=== PATIENT | female | born 1995 | race Caucasian/White ===

== ENCOUNTER 2017-09-30 01:39 | Emergency (ER) | END 2017-09-30 05:52 | disposition home or self-care (01) ==

== ENCOUNTER 2017-10-05 23:03 | Emergency (ER) | END 2017-10-06 00:52 | disposition home or self-care (01) ==

== ENCOUNTER 2017-11-02 21:39 | Emergency (ER) | END 2017-11-03 01:31 | disposition left against medical advice (07) ==

== ENCOUNTER 2018-05-08 13:25 | Emergency (ER) | payer BC ==
[~2018-05-08] VITALS: Wt 141.0 kg
[~2018-05-08 13:25] MED LIST: ALBU8.5H8 INH; NAPH15DR69 LEFT EYE
[2018-05-08 13:27] VITALS: BP 145/85; PULSE 73; RESP 20
[2018-05-08] MEDS ORDERED: TETRACAINE 0.5% 4 ML OPH LEFT EYE SCH (14:00)
[2018-05-08] MEDS ORDERED: SULF15DR19 LEFT EYE (15:13)
--- NOTE | 2018-05-08 15:23 | ERD ---
ER Documentation Chief Complaint Chief Complaint l. eye pain and swelling x2 days, denies trauma HPI 22-year-old female patient with a past medical history of anemia presents the ED complaining of left eye pain and yellow eye crusts that started 2 days ago. States that she wears glasses but denies wearing contacts. Denies any fever, chills, eye injuries, nausea, vomiting, diplopia, vision loss, red eyes. She reports that she did notice these yellow eye crusting upon waking up, and has sometimes difficulty opening up her eyes. ROS All systems reviewed and are negative except as per history of present illness. Medications Home Meds Active Scripts Sulfacetamide Sodium* (Bleph-10*) 10%-15 Ml Opht Drops, 1 DROP LEFT EYE Q2H, #1 EA Prov:CARLY HUI PA-C 05/08/18 Naphazoline-Pheniramine* (Visine-A*) 15 Ml Drops, 2 DROP LEFT EYE Q4H PRN for RED EYES, #1 BOTTLE Prov:DEBRA OLMOS NP 10/06/17 Albuterol Sulfate* (Proair HFA*) 8.5 Gm Hfa.aer.ad, 2 PUFF INH Q4H PRN for WHEEZ ING AND SOB, #1 INHALER Prov:DEBRA OLMOS NP 09/30/17 Allergies Allergies: Coded Allergies: Penicillins (Verified Allergy, Intermediate, UNKNOWN - DX A CHILD, 10/05/17) PMhx/Soc History of Surgery: No Anesthesia Reaction: No Hx Neurological Disorder: No Hx Respiratory Disorders: No Hx Cardiac Disorders: No Hx Psychiatric Problems: No Hx Miscellaneous Medical Probl: No Hx Alcohol Use: No Hx Substance Use: No Hx Tobacco Use: No FmHx Family History: No diabetes, No coronary disease Physical Exam Vitals Vital Signs Date Temp Pulse Resp B/P (MAP) Pulse Ox O2 O2 Flow FiO2 Time Delivery Rate 05/08/18 97.5 73 20 145/85 100 13:27 (105) Physical Exam Const: Vfu-erc-zjqaiaysc, well-nourished. In no acute distress. Head: Atraumatic, normocephalic Eyes: Normal Conjunctiva without injection. No purulent discharge. PERRLA. EOMI ENT: Normal external ear. Ear canal without erythema. Tympanic membrane pearly olivas without effusion or bulging. Nasal canal clear with normal turbinates. Moist oropharynx without tonsillar exudates. Non-erythematous pharynx. Uvula midline. No drooling. No trismus. Neck: No cervical midline tenderness. Full range of motion. No meningismus. No cervical lymphadenopathy. No JVD. Resp: Clear to auscultation bilaterally. No wheezing, rhonchi, rales, or crackles. No accessory muscle use. No retractions. Cardio: Regular rate and rhythm. No murmurs, rubs or gallops. Abd: Soft, non tender, non distended. Normal bowel sounds. No palpable masses. No rebound tenderness. No guarding. Negative McBurney's Point. Negative Grimaldo's Sign. Skin: Normal skin turgor. No petechiae or rashes Back: No midline tenderness. No CVA tenderness. Ext: No cyanosis, or edema. Distal pulses intact bilaterally. Neur: Awake and alert. Normal gait. Normal coordination. Cranial Nerves II- VII intact. Normal finger to nose. Muscle strength 5/5. Sensation intact. Psych: Normal Mood and Affect Results 24 hrs Current Medications Medications Dose Sig/Sly Start Time Status Last (Trade) Ordered Route PRN Stop Time Admin Dose Reason Admin Tetracaine 1 drop ONCE LEFT 05/08/18 HCl EYE 14:00 (Tetracaine 0.5% Steri-Unit Zina) Procedures/MDM 22-year-old female patient with no significant past medical history presents to ED complaining of left eye pain and yellow eye crest. Patient is afebrile and nontoxic-appearing. Visual acuity shows 20/24 bilateral, left, right eyes. Patient's IOP is 6 mmHg bilaterally. Patient symptoms could likely be secondary to conjunctivitis. Patient's ocular symptoms have stabilized while they have been evaluated in the department and are appropriate for outpatient work up. Low suspicion for ruptured globe, retinal detachment, periorbital cellulitis, acute angle closure glaucoma, deep space infection, iritis, traumatic hyphema, subconjunctival hemorrhage, corneal abrasion, corneal ulcer, pterygium, hypopyon, blepharitis, hordeolum, chalazion, or other emergent conditions. Diagnosis: Pain in Eye, Eye discharge Discharge medications: Sulfacetamide Sodium Drops Follow up with supply chain director in 1-2 days. Instructed patient to return to the ED sooner for any worsening symptoms. Patient's questions were answered. Patient is hemodynamically stable. Patient understood and agreed with discharge plan. Patient discharged stable. Disclaimer: Inadvertent spelling and grammatical errors are likely due to EHR/ dictation software use and do not reflect on the overall quality of patient care. Also, please note that the electronic time recorded on this note does not necessarily reflect the actual time of the patient encounter. Departure Diagnosis: Primary Impression: Pain in eye Laterality: left Qualified Codes: H57.12 - Ocular pain, left eye Additional Impression: Eye discharge Condition: Stable Patient Instructions: Conjunctivitis, Non-Specific Referrals: [facility] YOU HAVE RECEIVED A MEDICAL SCREENING EXAM AND THE RESULTS INDICATE THAT YOU DO NOT HAVE A CONDITION THAT REQUIRES URGENT TREATMENT IN THE EMERGENCY DEPARTMENT. FURTHER EVALUATION AND TREATMENT OF YOUR CONDITION CAN WAIT UNTIL YOU ARE SEEN IN YOUR DOCTORS OFFICE WITHIN THE NEXT 1-2 DAYS. IT IS YOUR RESPONSIBILITY TO MAKE AN APPOINTMENT FOR FOLOW-UP CARE. IF YOU HAVE A PRIMARY DOCTOR --you should call your primary doctor and schedule an appointment IF YOU DO NOT HAVE A PRIMARY DOCTOR YOU CAN CALL OUR PHYSICIAN REFERRAL HOTLINE AT IF YOU CAN NOT AFFORD TO SEE A PHYSICIAN YOU CAN CHOSE FROM THE FOLLOWING [facility] [address] [facility]. [facility] [address] [facility] [facility] [address] [facility] [facility] [address] [facility] [address] [facility]. [facility]. [address] [facility]. [facility] YOU HAVE RECEIVED A MEDICAL SCREENING EXAM AND THE RESULTS INDICATE THAT YOU DO NOT HAVE A CONDITION THAT REQUIRES URGENT TREATMENT IN THE EMERGENCY DEPARTMENT. FURTHER EVALUATION AND TREATMENT OF YOUR CONDITION CAN WAIT UNTIL YOU ARE SEEN IN YOUR DOCTORS OFFICE WITHIN THE NEXT 1-2 DAYS. IT IS YOUR RESPONSIBILITY TO MAKE AN APPOINTMENT FOR FOLOW-UP CARE. IF YOU HAVE A PRIMARY DOCTOR --you should call your primary doctor and schedule and appointment IF YOU DO NOT HAVE A PRIMARY DOCTOR YOU CAN CALL OUR PHYSICIAN REFERRAL HOTLINE AT . IF YOU CAN NOT AFFORD TO SEE A PHYSICIAN YOU CAN CHOSE FROM THE FOLLOWING [facility] INSTITUTIONS: [facility] [address] [place] [address] [facility] [address] [place] [address] [facility] [address] [place] [address] [facility] Hours: Mon - Fri 9:00 AM - 5:00 PM Additional Instructions: Call your primary care doctor TOMORROW for an appointment during the next 2-3 days.See the doctor sooner or return here if your condition worsens before your appointment time. CARLY HUI PA-C May 08, 2018 15:23
== END 2018-05-08 15:27 | disposition home or self-care (01) ==
LOC: FTE 13:25
DX: H57.12 Ocular pain, left eye (principal)
CPT/HCPCS: 99283